=== PATIENT | male | born 1960 | race Caucasian/White ===

== ENCOUNTER 2020-09-08 10:31 | Emergency (ER) | payer BC ==
--- NOTE | 2020-09-08 11:08 | EDM.PDOC ---
ED HPI GENERAL MEDICAL PROBLEM - General Chief Complaint: General Stated Complaint: CHILLS/DIFF. BREATHING Time Seen by Provider: 09/08/20 10:45 Source of Information: Reports: Patient, Family History Limitations: Reports: No Limitations - History of Present Illness INITIAL COMMENTS - FREE TEXT/NARRATIVE: 59-year-old male with generalized malaise, cough, intermittent shortness of breath, weakness, and difficulty walking over the past 24 hours. No pain, no headache, no nausea vomiting or diarrhea. Broke out in a sweat this morning. Glucose has also been elevated more than usual over the past day or 2. Onset: Gradual Duration: Day(s): (Not feeling well for the last 5 or 6 days, worse the last 24 hours) Location: Reports: Generalized Associated Symptoms: Reports: Cough, Diaphoresis, Fever/Chills, Malaise, Shortness of Breath, Weakness. Denies: Headaches - Related Data Allergies Allergy/AdvReac Type Severity Reaction Status Date / Time cephalexin [From Keflex] Allergy Hives Verified 09/08/20 11:05 Home Meds: Home Meds Aspirin [Adult Low Dose Aspirin EC] 81 mg PO DAILY 09/08/20 [History] Dulaglutide [Trulicity] 3 mg SQ WEEKLY 09/08/20 [History] Fish Oil/[place]-3 Fatty Acids [Fish Oil 1,000 MG] 1 tab PO DAILY 09/08/20 [History] Gabapentin [Neurontin] 3,000 mg PO TID 09/08/20 [History] Multivitamin 1 tab PO DAILY 09/08/20 [History] atorvaSTATin Calcium [Atorvastatin Calcium] 40 mg PO BEDTIME 09/08/20 [History] lisinopriL [Prinivil] 20 mg PO DAILY 09/08/20 [History] metFORMIN [Glucophage XR] 1,000 mg PO BIDMEALS 09/08/20 [History] Past Medical History Cardiovascular History: Reports: Hypertension, [place], Stents Respiratory History: Reports: Sleep Apnea Other Respiratory History: bipap machine Endocrine/Metabolic History: Reports: Diabetes, Type II Social & Family History - Tobacco Use Tobacco Use Status *Q: Never Tobacco User - Recreational Drug Use Recreational Drug Use: No ED ROS GENERAL - Review of Systems Review Of Systems: See Below Constitutional: Reports: Fever, Chills, Malaise HEENT: Denies: Rhinitis, Throat Pain, Vision Change Respiratory: Reports: Shortness of Breath, Cough, Sputum. Denies: Hemoptysis Cardiovascular: Denies: Chest Pain, Palpitations GI/Abdominal: Denies: Abdominal Pain, Nausea, Vomiting Skin: Reports: Diaphoresis Neurological: Reports: Dizziness, Difficulty Walking (Feels unsteady). Denies: Headache Psychiatric: Reports: No Symptoms ED EXAM, GENERAL - Physical Exam Exam: See Below Exam Limited By: No Limitations General Appearance: Alert, No Apparent Distress Eye Exam: Bilateral Eye: Normal Inspection (No jaundice) Throat/Mouth: Normal Inspection Head: Atraumatic Neck: Normal Inspection Respiratory/Chest: No Respiratory Distress, Lungs Clear Cardiovascular: Regular Rate, Rhythm. No: Tachycardia GI/Abdominal: Soft, Non-Tender Extremities: Pedal Edema (Just a trace of ankle edema bilaterally, symmetric) Neurological: Alert, Oriented, No Motor/Sensory Deficits Course - Vital Signs Last Recorded V/S: Last Vital Signs Temp 96.9 F 09/08/20 10:46 Pulse 80 09/08/20 12:17 Resp 16 09/08/20 12:17 BP 139/83 09/08/20 12:17 Pulse Ox 96 09/08/20 12:17 - Orders/Labs/Meds Orders: Active Orders 24 hr Category Date Time Status BABESIA MICROTI ANTIBODY PANEL Urgent Lab 09/08/20 12:56 Received HUMAN GRANULOCYTIC ALTA-HGE Urgent Lab 09/08/20 12:56 Received LYME, TOTAL AB TEST/REFLEX Urgent Lab 09/08/20 12:56 Received Isolation [COMM] Stat Oth 09/08/20 11:06 Ordered Labs: Laboratory Tests 09/08/20 09/08/20 09/08/20 Range/Units 11:06 11:18 11:18 WBC 2.7 L (4.5-11.0) K/uL RBC 5.36 (4.30-5.90) M/uL Hgb 15.9 H (12.0-15.0) g/dL Hct 44.9 (40.0-54.0) % MCV 84 (80-98) fL MCH 30 (27-31) pg MCHC 35 (32-36) % Plt Count 110 L (150-400) K/uL Neut % (Auto) 81 H (36-66) % Lymph % (Auto) 13 L (24-44) % [place] % (Auto) 5 (2-6) % Eos % (Auto) 0 L (2-4) % Baso % (Auto) 1 (0-1) % Sodium 133 L (140-148) mmol/L Potassium 3.8 (3.6-5.2) mmol/L Chloride 98 L (100-108) mmol/L Carbon Dioxide 20 L (21-32) mmol/L Anion Gap 18.8 H (5.0-14.0) mmol/L BUN 16 (7-18) mg/dL Creatinine 1.4 H (0.8-1.3) mg/dL Est Cr Clr Drug Dosing 53.61 mL/min Estimated GFR (MDRD) 52 L (>60) Glucose 331 H (74-106) mg/dL Lactic Acid (0.4-2.0) mmol/L Calcium 8.9 (8.5-10.1) mg/dL Total Bilirubin 1.5 H (0.2-1.0) mg/dL AST 88 H (15-37) U/L ALT 81 H (12-78) U/L Alkaline Phosphatase 78 (46-116) U/L Troponin I < 0.017 (0.000-0.056) ng/mL Total Protein 6.7 (6.4-8.2) g/dL Albumin 3.4 (3.4-5.0) g/dL Globulin 3.3 (2.3-3.5) g/dL Albumin/Globulin Ratio 1.0 L (1.2-2.2) Influenza Type A RNA Negative (NEGATIVE) RSV RNA (INAAT) Negative (NEGATIVE) Influenza Type B RNA Negative (NEGATIVE) SARS-CoV-2 RNA (MAKAYLA) Negative (NEGATIVE) 09/08/20 Range/Units 11:18 WBC (4.5-11.0) K/uL RBC (4.30-5.90) M/uL Hgb (12.0-15.0) g/dL Hct (40.0-54.0) % MCV (80-98) fL MCH (27-31) pg MCHC (32-36) % Plt Count (150-400) K/uL Neut % (Auto) (36-66) % Lymph % (Auto) (24-44) % [place] % (Auto) (2-6) % Eos % (Auto) (2-4) % Baso % (Auto) (0-1) % Sodium (140-148) mmol/L Potassium (3.6-5.2) mmol/L Chloride (100-108) mmol/L Carbon Dioxide (21-32) mmol/L Anion Gap (5.0-14.0) mmol/L BUN (7-18) mg/dL Creatinine (0.8-1.3) mg/dL Est Cr Clr Drug Dosing mL/min Estimated GFR (MDRD) (>60) Glucose (74-106) mg/dL Lactic Acid 2.3 H (0.4-2.0) mmol/L Calcium (8.5-10.1) mg/dL Total Bilirubin (0.2-1.0) mg/dL AST (15-37) U/L ALT (12-78) U/L Alkaline Phosphatase (46-116) U/L Troponin I (0.000-0.056) ng/mL Total Protein (6.4-8.2) g/dL Albumin (3.4-5.0) g/dL Globulin (2.3-3.5) g/dL Albumin/Globulin Ratio (1.2-2.2) Influenza Type A RNA (NEGATIVE) RSV RNA (INAAT) (NEGATIVE) Influenza Type B RNA (NEGATIVE) SARS-CoV-2 RNA (MAKAYLA) (NEGATIVE) - Re-Assessments/Exams Free Text/Narrative Re-Assessment/Exam: 09/08/20 12:26 CBC, CMP, troponin and 4 Plex viral study were ordered. Two-view chest x-ray also obtained. Chest x-ray looked normal, lactic acid returned just slightly elevated at 2.3 and white count was actually slightly low at 2700. Platelet count was mildly low as well at 110. Mild elevation of liver enzymes. This looks typical of a tickborne disease. Those tests were added, and patient will be placed on doxycycline twice daily for 10 days, encouraged to get fluids, increase activity as tolerated and return if worsening or concerns. Troponin was 0. Departure - Departure Time of Disposition: 13:00 Disposition: Home, Self-Care 01 Clinical Impression: Tick-borne disease - Discharge Information Instructions: Ehrlichiosis and Anaplasmosis Referrals: Bryn Thompson MD [Primary Care Provider] - Forms: ED Department Discharge Care Plan Goals: Take antibiotic twice daily until gone, return anytime if worsening or concerns. We will inform you of your results of the tick disease test. Sepsis Event Note (ED) - Evaluation Sepsis Screening Result: Possible Sepsis Risk - Focused Exam Vital Signs: Vital Signs Temp Temp Pulse Pulse Resp BP Pulse Ox 09/08/20 12:17 80 16 139/83 96 09/08/20 10:46 96.9 F 99 20 145/85 H 98 09/08/20 10:45 95.9 F L 94 18 145/85 H 99 - My Orders Last 24 Hours: My Active Orders 09/08/20 11:06 Isolation [COMM] Stat 09/08/20 12:56 BABESIA MICROTI ANTIBODY PANEL Urgent HUMAN GRANULOCYTIC ALTA-HGE Urgent LYME, TOTAL AB TEST/REFLEX Urgent - Assessment/Plan Last 24 Hours: My Active Orders 09/08/20 11:06 Isolation [COMM] Stat 09/08/20 12:56 BABESIA MICROTI ANTIBODY PANEL Urgent HUMAN GRANULOCYTIC ALTA-HGE Urgent LYME, TOTAL AB TEST/REFLEX Urgent
[2020-09-08 11:56] LABS: CORONAVIRUS COVID-19 NAA NEGATIVE (NEGATIVE)
--- NOTE | 2020-09-08 12:12 | CR ---
CHEST: 2 view CLINICAL HISTORY:Weakness COMPARISON:None FINDINGS: The heart size, pulmonary vascularity and hilar structures are normal. No infiltrate effusion or pneumothorax is seen. IMPRESSION: No acute cardiopulmonary process.
[2020-09-10 10:13] LABS: LYME IGG/IGM AB <0.91 ISR (0.00-0.90)
[2020-09-10 14:13] LABS: BABESIA MICROTI IGG <1:10 (Neg:<1:10); BABESIA MICROTI IGM <1:10 (Neg:<1:10)
[2020-09-10 15:13] LABS: HGE IGG TITER Negative (Neg:<1:64); HGE IGM TITER Negative (Neg:<1:20)
== END 2020-09-08 13:00 | disposition home or self-care (01) ==
LOC: JP.ED 10:31
DX: A93.8 Other specified arthropod-borne viral fevers (principal); E11.9 Type 2 diabetes mellitus without complications; I10 Essential (primary) hypertension; I25.2 Old myocardial infarction; Z20.822 Contact with and (suspected) exposure to COVID-19; Z88.1 Allergy status to other antibiotic agents; Z79.82 Long term (current) use of aspirin
CPT/HCPCS: 0241U; 36415; 71046; 80053; 83605; 84484; 85025; 86618; 86666; 86753; 99285

== ENCOUNTER 2021-02-17 16:03 | Emergency (ER) | payer BC ==
[2021-02-17] MEDS ORDERED: Lidocaine 1% with EPINEPHrine 1:100,000 50 ML MDV INFILT ONE (16:32)
--- NOTE | 2021-02-17 16:33 | EDM.PDOC ---
ED HPI GENERAL MEDICAL PROBLEM - General Chief Complaint: Laceration Stated Complaint: CUT ON LEFT POINTER FINGER Time Seen by Provider: 02/17/21 16:20 Source of Information: Reports: Patient History Limitations: Reports: No Limitations - History of Present Illness INITIAL COMMENTS - FREE TEXT/NARRATIVE: 60-year-old male cut the tip of his finger on a table saw just prior to coming in. He has an avulsion of the tip of the index finger on the left hand. Onset: Sudden Duration: Hour(s): (Within the last hour) Location: Reports: Upper Extremity, Left Associated Symptoms: Reports: No Other Symptoms - Related Data Allergies Allergy/AdvReac Type Severity Reaction Status Date / Time cephalexin [From Keflex] Allergy Hives Verified 02/17/21 16:31 Home Meds: Home Meds Aspirin [Adult Low Dose Aspirin EC] 81 mg PO DAILY 09/08/20 [History] Fish Oil/[place]-3 Fatty Acids [Fish Oil 1,000 MG] 1 tab PO DAILY 09/08/20 [History] Gabapentin [Neurontin] 600 mg PO BID 09/08/20 [History] Multivitamin 1 tab PO DAILY 09/08/20 [History] atorvaSTATin Calcium [Atorvastatin Calcium] 40 mg PO BEDTIME 09/08/20 [History] lisinopriL [Prinivil] 20 mg PO DAILY 09/08/20 [History] metFORMIN [Glucophage XR] 1,000 mg PO BIDMEALS 09/08/20 [History] Dulaglutide [Trulicity] 4.5 mg SQ DAILY 02/17/21 [History] Past Medical History Cardiovascular History: Reports: Hypertension, [place], Stents Respiratory History: Reports: Sleep Apnea Other Respiratory History: bipap machine Endocrine/Metabolic History: Reports: Diabetes, Type II Social & Family History - Tobacco Use Tobacco Use Status *Q: Never Tobacco User - Recreational Drug Use Recreational Drug Use: No ED ROS GENERAL - Review of Systems Review Of Systems: See Below Constitutional: Denies: Fever, Chills Respiratory: Denies: Shortness of Breath Cardiovascular: Denies: Chest Pain GI/Abdominal: Reports: No Symptoms Neurological: Reports: No Symptoms Psychiatric: Reports: No Symptoms ED EXAM, SKIN/RASH Exam: See Below Exam Limited By: No Limitations General Appearance: Alert, No Apparent Distress Head: Atraumatic Respiratory/Chest: Lungs Clear Extremities: Other (Exam is otherwise limited to the left hand. The patient has a 1 cm x 1 cm transverse avulsion of the tip of the index finger including the distal aspect of the nail. It is actively oozing blood.) Neurological: Alert, Oriented Psychiatric: Normal Affect, Normal Mood Course - Vital Signs Last Recorded V/S: Last Vital Signs Temp 96.7 F L 02/17/21 16:26 Pulse 72 02/17/21 16:26 Resp 16 02/17/21 16:26 BP 143/81 H 02/17/21 16:26 Pulse Ox 98 02/17/21 16:26 - Orders/Labs/Meds Meds: Medications Discontinued Medications Generic Name Dose Route Start Last Admin Trade Name Freq PRN Reason Stop Dose Admin Bacitracin 1 dose 02/17/21 16:53 02/17/21 17:02 Bacitracin Oint 1 Gm U/D Packet TOP 02/17/21 16:54 1 dose ONETIME ONE Administration Lidocaine/Epinephrine 30 ml 02/17/21 16:32 02/17/21 16:39 Lidocaine 1% With Epinephrine 1:100,000 50 Ml Mdv INFILT 02/17/21 16:33 50 ml ONETIME ONE Administration - Re-Assessments/Exams Free Text/Narrative Re-Assessment/Exam: 02/17/21 17:51 The area was anesthetized with 1% lidocaine with epinephrine and cleansed thoroughly. Some debridement of the injured nail was cut from the side of the injury. Cautery was then used to stop the oozing, a small amount of bacitracin was applied and a Band-Aid and the patient was supplied an aluminum foam splint to use on the finger for protection. He can recheck if he is concerned about infection or not healing satisfactorily. Otherwise keep the wound covered and clean while healing. Departure - Departure Time of Disposition: 16:57 Disposition: Home, Self-Care 01 Clinical Impression: Laceration of finger Qualifiers: Encounter type: initial encounter Finger: index finger Damage to nail status: with damage Foreign body presence: without foreign body Laterality: left Qualified Code(s): S61.311A - Laceration without foreign body of left index finger with damage to nail, initial encounter - Discharge Information Instructions: Laceration Care, Adult Referrals: Bryn Thompson MD [Primary Care Provider] - Forms: ED Department Discharge Care Plan Goals: Keep wound covered while healing, keep clean with daily soaks and protect with the aluminum splint. Recheck anytime if concerns of infection or not healing satisfactorily. Sepsis Event Note (ED) - Evaluation Sepsis Screening Result: No Definite Risk - Focused Exam Vital Signs: Vital Signs Temp Pulse Resp BP Pulse Ox 02/17/21 16:26 96.7 F L 72 16 143/81 H 98 02/17/21 16:20 96.7 F L 72 16 143/81 H 98
[2021-02-17] MEDS ORDERED: Bacitracin Oint 1 GM U/D Packet TOP ONE (16:53)
== END 2021-02-17 17:09 | disposition home or self-care (01) ==
LOC: JP.ED 16:03
DX: S61.311A Laceration without foreign body of left index finger with damage to nail, initial encounter (principal); E11.9 Type 2 diabetes mellitus without complications; I10 Essential (primary) hypertension; I25.2 Old myocardial infarction; Z95.5 Presence of coronary angioplasty implant and graft; Z88.1 Allergy status to other antibiotic agents; Z79.82 Long term (current) use of aspirin; Z79.84 Long term (current) use of oral hypoglycemic drugs; Z79.899 Other long term (current) drug therapy; W27.0XXA Contact with workbench tool, initial encounter
CPT/HCPCS: 12001; 99282-25

== ENCOUNTER 2024-04-27 11:27 | Emergency (ER) | payer BC, MEDICARE ==
[2024-04-27] MEDS: Lidocaine 1% 10 ML MDV INJECT ONE (13:07)
[2024-04-27] MEDS: Bacitracin Oint 1 GM U/D Packet TOP ONE (13:32)
== END 2024-04-27 13:43 | disposition home or self-care (01) ==
LOC: JP.ED 11:27
DX: S61.012A Laceration without foreign body of left thumb without damage to nail, initial encounter (principal); I25.2 Old myocardial infarction; I10 Essential (primary) hypertension; E11.9 Type 2 diabetes mellitus without complications; Z88.1 Allergy status to other antibiotic agents; Z79.82 Long term (current) use of aspirin; Z79.84 Long term (current) use of oral hypoglycemic drugs; Z79.899 Other long term (current) drug therapy; W23.1XXA Caught, crushed, jammed, or pinched between stationary objects, initial encounter
CPT/HCPCS: 12001; 73140-26-FA; 73140-FA; 99283

== ENCOUNTER 2024-12-02 06:42 | Day surgery (SDC) | payer MEDICARE ==
[2024-12-02] MEDS: Lactated Ringers 1,000 ML IV SCH (07:18)
[2024-12-02] MEDS ORDERED: fentaNYL 50 MCG/ML SDV ONE (08:22)
[2024-12-02] MEDS ORDERED: Propofol 200 MG/20 ML SDV ONE (08:22)
[2024-12-02] MEDS ORDERED: Midazolam 1 MG/ML 2 ML SDV ONE (08:22)
== END 2024-12-02 10:07 | disposition home or self-care (01) ==
LOC: JP.SDS 06:42
PROVIDERS: ATTEND Surgery
DX: Z12.11 Encounter for screening for malignant neoplasm of colon (principal); E11.9 Type 2 diabetes mellitus without complications; Z80.0 Family history of malignant neoplasm of digestive organs
CPT/HCPCS: 00812; G0105; J2250; J2704; J3010; J7120